=== PATIENT | female | born 1985 | race African-American/Black ===

== ENCOUNTER 2016-09-27 15:39 | Emergency (ER) | payer OTHER ==
[~2016-09-27] VITALS: Ht 162.6 cm; Wt 72.6 kg
[2016-09-27 16:21] VITALS: BP 132/90
== END 2016-09-27 17:29 | disposition home or self-care (01) ==
LOC: ER 15:49
DX: S63.501A Unspecified sprain of right wrist, initial encounter (principal); X50.9XXA Other and unspecified overexertion or strenuous movements or postures, initial encounter; Y93.89 Activity, other specified; Y99.8 Other external cause status; Y92.89 Other specified places as the place of occurrence of the external cause; M25.521 Pain in right elbow
CPT/HCPCS: 73110

== ENCOUNTER 2016-11-17 00:15 | Emergency (ER) | payer MEDICAID, OTHER ==
[~2016-11-17] VITALS: Ht 165.1 cm; Wt 74.8 kg
[2016-11-17] MEDS ORDERED: LORazepam 0.5 MG TAB PO ONE (00:45)
[2016-11-17 01:52] VITALS: BP 150/87
== END 2016-11-17 01:53 | disposition home or self-care (01) ==
LOC: ER 00:16
DX: F41.0 Panic disorder [episodic paroxysmal anxiety] (principal); F32.9 Major depressive disorder, single episode, unspecified

== ENCOUNTER 2016-11-25 09:38 | Emergency (ER) | payer MEDICAID ==
[~2016-11-25] VITALS: Ht 165.1 cm; Wt 74.8 kg
[2016-11-25 11:27] VITALS: BP 158/99
== END 2016-11-25 11:41 | disposition home or self-care (01) ==
LOC: ER 09:38
DX: I10 Essential (primary) hypertension (principal); Z98.51 Tubal ligation status

== ENCOUNTER 2017-12-29 09:51 | Inpatient (IN) | payer MEDICAID ==
[~2017-12-29] VITALS: Ht 165.1 cm; Wt 73.0 kg
[2017-12-29 10:42] LABS: Basophils # (auto) 0 uL; Basophils % (auto) 0.3 % (0.0-2.0); Eosinophils # (auto) 0.1 uL; Eosinophils % (auto) 0.7 % (0.0-7.0); Hematocrit 37.4 % (36.0-46.0); Hemoglobin 12.2 g/dL (12.2-16.2); Lymphocytes # (auto) 1.9 uL; Lymphocytes % (auto) 19.2 % (10.0-50.0); Mean Corpuscular Hgb Conc. 32.6 g/dL (32.0-36.0); Mean Corpuscular Volume 101.2 fL (80.0-100.0); Monocytes # (auto) 0.6 uL; Monocytes % (auto) 6.4 % (0.0-12.0); Neutrophils # (auto) 7.2 uL; Neutrophils % (auto) 73.4 % (37.0-80.0); Platelet Count (auto) 316 10^3/uL (140-450); Red Cell Distribution Width 13.4 % (11.8-14.3); White Blood Cell 9.9 10^3/uL (4.4-10.8)
[2017-12-29 10:44] LABS: Urine Bacteria NONE SEEN /hpf (None Seen); Urine Blood Negative /uL (Negative); Urine Mucus FEW (None Seen); Urine Specific Gravity 1.018 (1.001-1.035); Urine WBC 19 /hpf (0 - 5)
[2017-12-29] MEDS ORDERED: HYDROcodone-ACET 5/325MG TAB PO ONE (11:00)
[2017-12-29 11:01] LABS: Calcium 8.7 mg/dL (8.5-10.1); Potassium 3.5 mmol/L (3.5-5.1)
[2017-12-29 11:04] LABS: BUN/Creatinine Ratio 6.1; Bilirubin, Total 0.3 mg/dL (0.2-1.0); Total Protein 7.8 g/dL (6.4-8.2)
[2017-12-29] MEDS ORDERED: PIPERACILLIN-TAZOB 3.375GM 100 ML IV ONE (11:45)
[2017-12-29] MEDS ORDERED: SODIUM CHLORIDE 0.9% 1,000 ML IV SCH (13:32)
[2017-12-29] MEDS ORDERED: ACETAMINOPHEN 325 MG TAB PO PRN (13:45)
[2017-12-29] MEDS ORDERED: TEMAZEPAM 15 MG CAP PO PRN (13:45)
[2017-12-29] MEDS ORDERED: NITROGLYCERIN 0.4 MG SL TAB SL PRN (13:45)
[2017-12-29] MEDS ORDERED: MORPHINE SULFATE 4 MG/ML SYR/VIAL IV PRN (13:45)
[2017-12-29] MEDS ORDERED: HYDROcodone-ACET 5/325MG TAB PO PRN (13:45)
[2017-12-29] MEDS ORDERED: cloNIDine HCL 0.1 MG TAB PO PRN (13:45)
[2017-12-29] MEDS ORDERED: ONDANSETRON HCL 4 MG/2 ML VIAL IV PRN (13:45)
[2017-12-29] MEDS ORDERED: ENALAPRIL MALEATE 2.5 MG TAB PO ONE (13:45)
[2017-12-29] MEDS ORDERED: HCTZ 25 MG TAB PO ONE (13:45)
[2017-12-29] MEDS ORDERED: POTASSIUM CHL 10 Meq TABLET PO ONE (13:45)
[2017-12-29] MEDS ORDERED: DOCUSATE SOD 100 MG CAP PO PRN (13:45)
[2017-12-29] MEDS: MORPHINE SULFATE 4 MG/ML SYR/VIAL IV PRN ×2 (13:52→21:03)
[2017-12-29] MEDS ORDERED: metroNIDAZOLE 500MG/100ML 100 ML IV SCH (14:00)
[2017-12-29 16:00] VITALS: BP 157/78
[2017-12-29 17:00] VITALS: BP 157/78
[2017-12-29] MEDS ORDERED: HYDROcodone-ACET 10/325MG TAB PO PRN (17:15)
[2017-12-29] MEDS ORDERED: PIPERACILLIN-TAZOB 3.375GM 100 ML IV SCH (18:00)
[2017-12-29] MEDS ORDERED: Ensure Enlive Strawberry 8oz Bottle PO SCH (18:00)
[2017-12-29] MEDS ORDERED: DIPH1TAB30 PO (20:18)
[2017-12-29 22:00] VITALS: BP 153/81
[2017-12-29] MEDS ORDERED: FAMOTIDINE 20 MG TAB PO SCH (22:00)
[2017-12-30] MEDS ORDERED: ENALAPRIL MALEATE 2.5 MG TAB PO SCH (10:00)
[2017-12-30] MEDS ORDERED: HCTZ 25 MG TAB PO SCH (10:00)
[2017-12-30] MEDS ORDERED: POTASSIUM CHL 10 Meq TABLET PO SCH (10:00)
[2017-12-30] MEDS ORDERED: MULTIPLE VITAMIN TAB PO SCH (10:00)
== END 2017-12-29 22:30 | disposition left against medical advice (07) | DRG 282 ==
LOC: ER 09:51 → OVERFLOW 13:39 → TELE-EAST 16:15
PROVIDERS: ADMIT Internal Medicine; ATTEND Internal Medicine
DX: K85.90 Acute pancreatitis without necrosis or infection, unspecified (principal); E44.0 Moderate protein-calorie malnutrition; I10 Essential (primary) hypertension; M19.90 Unspecified osteoarthritis, unspecified site; F41.9 Anxiety disorder, unspecified; N39.0 Urinary tract infection, site not specified; M25.522 Pain in left elbow; Z53.21 Procedure and treatment not carried out due to patient leaving prior to being seen by health care provider; Z98.51 Tubal ligation status; Z82.49 Family history of ischemic heart disease and other diseases of the circulatory system; Z91.14 Patient's other noncompliance with medication regimen; Z68.26 Body mass index [BMI] 26.0-26.9, adult
CPT/HCPCS: 36415; 73080; 74176; 80053; 81001; 81025; 83690; 85025; 87040; 87086; G0378; J2405; J2543; J3490

== ENCOUNTER 2018-04-01 01:15 | Emergency (ER) | payer MEDICAID, OTHER ==
[~2018-04-01 01:15] MED LIST: DIPH1TAB30 PO
== END 2018-04-01 01:25 | disposition left against medical advice (07) ==
LOC: ER 01:18
DX: R30.0 Dysuria (principal); Z53.21 Procedure and treatment not carried out due to patient leaving prior to being seen by health care provider